=== PATIENT | male | born 1990 | race Two or more races ===

== ENCOUNTER 2020-10-27 15:45 | Emergency (ER) | payer OTHER, SELFPAY ==
[2020-10-27 15:51] VITALS: BP 141/88; PULSE 73; RESP 16; TEMP 36.7; O2SAT 99; BMI 26.2
[2020-10-27] MEDS: Lidocaine HCl 1 % MPF 5 ML VIAL SUBCUT (16:30)
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
== END 2020-10-27 19:56 | disposition home or self-care (01) ==
PROVIDERS: Emergency Provider Emergency Medicine Emergency Medical Services
DX: S91.311A Laceration without foreign body, right foot, initial encounter (principal); W22.8XXA Striking against or struck by other objects, initial encounter; Y93.89 Activity, other specified; Y92.038 Other place in apartment as the place of occurrence of the external cause; Y99.9 Unspecified external cause status
CPT/HCPCS: 12042; 99284

== ENCOUNTER 2021-05-30 10:12 | Emergency (ER) | payer OTHER, SELFPAY ==
[2021-05-30 10:18] VITALS: BP 103/57; PULSE 59; RESP 18; TEMP 36.8; O2SAT 97
--- NOTE | 2021-05-30 10:44 | ED.GENADULT ---
HPI - General Adult General Chief complaint: Upper Respiratory Symptoms Stated complaint: Cough Time Seen by Provider: 05/30/21 10:35 Source: patient Limitations: no limitations History of Present Illness HPI narrative: Patient presents with daughter states he has been coughing intermittently over the past few weeks. Patient is fully vaccinated for COVID-19. Patient admits to tobacco use and marijuana use. Patient states at times his cough is productive for yellow and white sputum. Patient denies any prescribed medications at this time. Patient denies nausea vomiting fever chills. No known COVID-19 exposure. Patient states he is trying to quit smoking at this time. No other complaints at this time. Related Data Previous Rx's Medication Instructions Recorded bacitracin 500 unit/gram topical 1 appl TOPICAL BID #30 g 10/27/20 ointment doxycycline hyclate 100 mg tablet 100 mg PO BID #14 tab 11/01/20 albuterol sulfate 90 mcg/actuation 2 inh INHALATION Q6H PRN #6.7 g 05/30/21 aerosol inhaler benzonatate 100 mg capsule 100 mg PO TID PRN #14 cap 05/30/21 Allergies Allergy/AdvReac Type Severity Reaction Status Date / Time No Known Allergies Allergy Verified 11/06/20 08:48 [No Known Allergies*] Review of Systems Constitutional: Constitutional: Denies chills, Denies fatigue, Denies fever(s) and Denies headache(s) ENT: Denies headache(s), Denies nasal congestion and Denies sore throat Cardiovascular: Cardiovascular: Denies chest pain and Denies dyspnea Respiratory: Respiratory: Reports chest congestion, Reports cough, Denies hemoptysis, Denies dyspnea and Reports wheezing Gastrointestinal: Gastrointestinal: Denies nausea and Denies vomiting Musculoskeletal: Musculoskeletal: Reports no additional musculoskeletal complaints Neurologic: Denies headache(s) Endocrine: Endocrine: Denies fatigue Allergic/Immunologic: Allergic/Immunologic: Reports wheezing PMFSH Past Medical History Medical History No known health problems Social History Social History Advance Directives: No Advance Directives Information Provided: No Physical Exam ED Vital Signs: Vital Signs - 24 hr 05/30/21 10:18 05/30/21 10:52 Temperature 98.2 F 98.2 F Pulse Rate 59 59 Respiratory Rate 18 18 Blood Pressure 103/57 L 103/57 L Pulse Oximetry 97 97 BMI result Body Mass Index 23.1 vital signs have been reviewed as normal and appeared to be correct. Blood pressure normal. Heart rate normal. Respiration rate normal. Temperature normal. Oxygen saturation normal. Appearance: Alert. Oriented X3. No acute distress. Head: Normal external exam. Normocephalic. Atraumatic. Eyes: PERRLA. EOMI. Conjunctiva and sclera normal. Eyelids normal. ENT: Pharynx normal. Uvula midline. Moist mucous membranes. No trismus noted. No drooling noted. No muffled voice noted. Neck: Soft full range of motion, no JVD CVS: Heart regular rate and rhythm no murmurs and rubs Respiratory: Breath sounds slightly coarse with forced expiratory wheeze only no accessory muscle use no respiratory compromise. Back: Full range of motion noted. Skin: Skin warm and dry. Normal skin color. Normal skin turgor. No rashes/lesions/lacerations noted. Extremities: No lower extremity edema. Extremities exhibit normal range of motion. Extremities nontender. Neuro: Oriented X 3. No motor deficit. No sensory deficit. Reflexes normal. Course Course Course Narrative: Influenza COVID-19 Chronic bronchitis Viral syndrome Reactive airway disease secondary to tobacco use. 11:04 COVID-19 swab influenza swabs pending. Symptoms likely secondary to reactive airway disease secondary to tobacco or marijuana use. Swab is negative for influenza a and B and COVID-19. Cough is likely secondary to reactive airway disease secondary to tobacco use. Medical Decision Making Lab Data Labs: Lab Results 05/30/21 05/30/21 Range/Units 10:41 10:41 COVID-19 (DIAMANTE) Negative (Negative) COVID-19 Clin Com See Note Influenza Type A (ROSALBA) Negative (Negative) Influenza Type B (ROSALBA) Negative (Negative) Influenza A & B Note See Note Discharge Plan Discharge Clinical Impression: Upper respiratory disease Patient Disposition: Home, Self-Care Instructions: How to Stop Smoking (ED) Additional Instructions: Cough is likely secondary to chronic smoking. You tested negative for influenza and COVID-19. Return if symptoms worsen follow-up with PCP Prescriptions: New benzonatate 100 mg capsule 100 mg PO TID PRN (Reason: cough) Qty: 14 0RF albuterol sulfate 90 mcg/actuation HFA aerosol inhaler 2 inh inhalation Q6H PRN (Reason: wheezing) Qty: 6.7 0RF No Action bacitracin 500 unit/gram ointment 1 appl topical BID Qty: 30 0RF doxycycline hyclate 100 mg tablet 100 mg PO BID Qty: 14 0RF Stand Alone Forms: Work/School Release
[2021-05-30 10:52] VITALS: BP 103/57; PULSE 59; RESP 18; TEMP 36.8; O2SAT 97; BMI 23.1
[2021-05-30 11:28] LABS: COVID-19 Test Negative (Negative)
[2021-05-30 11:39] LABS: IDNOW Serial# 08D9AD1C; Influenza A Negative (Negative); Influenza B2 Negative (Negative)
[2021-05-30] MEDS: Albuterol Sulfate 90 MCG 8 GM INHALER 2 PUFF INHALE (12:49)
== END 2021-05-30 13:00 | disposition home or self-care (01) ==
PROVIDERS: Physician Assistant; Emergency Provider Emergency Medicine
DX: J06.9 Acute upper respiratory infection, unspecified (principal); Z20.822 Contact with and (suspected) exposure to COVID-19; F17.200 Nicotine dependence, unspecified, uncomplicated; F12.90 Cannabis use, unspecified, uncomplicated
CPT/HCPCS: 87502; 87635; 94640; 99283; 99284

== ENCOUNTER 2022-07-01 09:33 | Outpatient (REF) | payer OTHER, SELFPAY ==
--- NOTE | ~2022-07-01 | XR_ITS ---
EXAMINATION: XR CHEST CLINICAL INFORMATION: Back pain. COMPARISON: None available. TECHNIQUE: 2 views of the chest were obtained. FINDINGS: No significant abnormality is noted involving the heart, lungs, mediastinum, bony thorax or soft tissues. XR/XR chest 2V IMPRESSION: No acute cardiopulmonary process.
== END 2022-07-01 09:34 | disposition home or self-care (01) ==
LOC: HO.HMGCX 09:33
PROVIDERS: Visit Provider Internal Medicine
DX: M54.9 Dorsalgia, unspecified (principal)
CPT/HCPCS: 71046

== ENCOUNTER 2022-12-31 09:52 | Emergency (ER) | payer OTHER, SELFPAY ==
--- NOTE | ~2022-12-31 | XR_ITS ---
EXAMINATION: XR CHEST CLINICAL INFORMATION: Worsening left upper chest pain COMPARISON: 07/01/2022 TECHNIQUE: Frontal view of the chest was obtained. FINDINGS: No significant abnormality is noted involving the heart, lungs, mediastinum, bony thorax or soft tissues. No pneumothorax. XR/XR chest 1V IMPRESSION: Unremarkable examination.
--- NOTE | 2022-12-31 09:54 | ECG_ITS ---
Test Reason : l sided chest pain Blood Pressure : / mmHG Vent. Rate : 064 BPM Atrial Rate : 064 BPM P-R Int : 152 ms QRS Dur : 098 ms QT Int : 392 ms P-R-T Axes : 061 030 035 degrees QTc Int : 404 ms Normal sinus rhythm Normal ECG No previous ECGs available Referred By: Generic ED Physician Electronically Signed By:FRANCOIS BAHENA MD
[2022-12-31 10:11] VITALS: BP 104/60; PULSE 69; RESP 16; TEMP 36.4; O2SAT 97; BMI 22.0
[2022-12-31 10:26] LABS: MANUAL DIFF FLAG NO
[2022-12-31 10:28] LABS: Basophils Percent Auto 0.5 % (0-2); Eosinophils Absolute Auto 0.1 X10*3/uL (0.0-0.4); Eosinophils Percent Auto 1.8 % (0-4); Hematocrit 47.5 % (42.0-52.0); Hemoglobin 15.5 g/dl (14.0-18.0); Imm Gran Abs Auto 0.02 X10*3/uL (0.00-0.03); Imm Gran Pct Auto 0.3 % (0.0-0.4); Lymphocytes Absolute Auto 1.7 X10*3/uL (1.2-4.9); Lymphocytes Percent Auto 27.6 % (20-40); Mean Corpuscular HGB Conc 32.6 g/dl (31.0-36.0); Mean Corpuscular Volume 91.9 fL (80.0-98.0); Mean Platelet Volume 11.8 fL (9.4-12.4); Monocytes Absolute Auto 0.4 X10*3/uL (0.1-1.2); Monocytes Percent Auto 6.4 % (2-11); Neutrophils Absolute Auto 3.9 x10*3/uL (2.0-8.3); Neutrophils Percent Auto 63.4 % (45-73); Platelet Count 160 X10*3/uL (160-400); Red Blood Count 5.17 X10*6/uL (4.60-5.80); Red Cell Distribution Width 11.7 % (11.0-16.0); White Blood Count 6.1 X10*3/uL (4.8-10.8)
[2022-12-31 10:41] LABS: Anion Gap 11 (12-20); Blood Urea Nitrogen 14 mg/dL (9-16); Calcium 9.9 mg/dL (8.4-10.2); Carbon Dioxide 27 mmol/L (22-29); Chloride 108 mmol/L (96-108); Creatinine Clr Calc Pharmacy 105.2; Estimated Glomerular Filt Rate > 60; Glucose Random 82 mg/dL (60-115); Potassium 4.2 mmol/L (3.3-5.1); Sodium 142 mmol/L (135-145)
[2022-12-31 10:51] LABS: Troponin-I High Sensitivity < 2.7 ng/L (<3.5-35.0)
--- NOTE | 2022-12-31 11:21 | ED_ITS ---
HPI - Chest Pain General Chief Complaint: Chest Pain Stated Complaint: pain near heart/ shoulder pain Time Seen by Provider: 12/31/22 11:22 Source: patient, old records reviewed and translator interpreter Mode of arrival: ambulatory Limitations: no limitations History of Present Illness HPI narrative: 32 yo male presents to the ER for evaluation of acute on chronic left sided chest pain. He states is has been going on intermittently for years but the last 1 week it has been worse. Last night when working out it was worse in the left chest when lifting. It is worse when he touches his chest wall. He states it does not radiate. He has no SOB, difficulty breathing, leg swelling, nausea, vomiting, abdominal pain, diaphoresis. No history of heart disease in family members under 50. He feels like he may have breast cancer in the left side because he lost 35 lbs over the last year. MD complaint: chest pain Onset (ago): week(s) Timing of current episode: episodic Prior episodes: Yes Onset: during rest Pain location: left chest Pain radiation: none Severity: moderate Quality: tightness Relieving factors: rest Exacerbating factors: palpation Treatment prior to arrival: none Risk Factors Coronary artery disease risk factors: none Thoracic aortic dissection risk factors: none Related Data Previous Rx's Medication Instructions Recorded bacitracin 500 unit/gram topical 1 appl topical BID #30 grams 10/27/20 ointment doxycycline hyclate 100 mg tablet 100 mg PO BID #14 tabs 11/01/20 albuterol sulfate 90 mcg/actuation 2 inh inhalation Q6H PRN wheezing 05/30/21 aerosol inhaler #6.7 grams benzonatate 100 mg capsule 100 mg PO TID PRN cough #14 caps 05/30/21 cyclobenzaprine 10 mg tablet 10 mg PO BEDTIME #14 tabs 07/01/22 meloxicam 15 mg tablet 15 mg PO DAILY #14 tabs 07/01/22 naproxen 500 mg tablet 500 mg PO BID PRN pain #20 tabs 12/31/22 Allergies Allergy/AdvReac Type Severity Reaction Status Date / Time No Known Allergies Allergy Verified 12/31/22 10:10 [No Known Allergies*] Review of Systems 2 Review of Systems: Yes all other systems are reviewed and are negative PMFSH Past Medical History Medical History No known health problems Social History Social History Advance Directives: No Advance Directives Information Provided: No Physical Exam 2 Vital Signs: Vital Signs: Last Vital Signs Temp 97.5 F 12/31/22 10:11 Pulse 69 12/31/22 10:11 Resp 16 12/31/22 10:11 BP 104/60 12/31/22 10:11 Pulse Ox 97 12/31/22 10:11 O2 Del Method Room Air 12/31/22 10:11 BMI result Body Mass Index 22.0 Appearance: Alert. Oriented X3. No acute distress. Head: normocephalic, atraumatic. Eyes: Pupils equal, round and reactive to light. ENT: Pharynx normal. No tonsillar swelling or exudate. Neck: Normal inspection. Neck supple. CVS: Normal heart rate and rhythm. Pulses normal. Left sided chest wall tenderness. no palpable mass Respiratory: No respiratory distress. Breath sounds normal. Abdomen: Soft and nontender. +BS x4 Skin: Skin warm and dry. Normal skin color. Normal skin turgor. No rashes. Extremities: No lower extremity edema. No joint swelling. No calf tenderness Neuro/psych: Oriented X 3. No motor deficit. No sensory deficit. CN II-XII intact. Normal speech and cognition. Medical Decision Making Medical Decision Making [facility] Narrative: 32 yo otherwise healthy male, current smoker who presents to the ER for evaluation of acute on chronic reproducible left sided chest pain. +tenderness on exam. VSS and exam otherwise unremarkable. Cardiac workup is unremarkable. CXR clear. trop <2.7 Given tenderness on exam, pain is likely muscular in nature. no palpable mass. patient reassured and encouraged to f/u with PCP if he is still concerned about a possible underlying malignancy. will start on NSAIDS for costochondritis. PCP referrals given. stable for d/c home Differential Diagnosis Differential Diagnoses: The differential diagnosis associated with the presentation includes MSK pain, costochondritis, PNA, bronchitis, less likely ACS, PE or breast cancer Lab Data [facility] Lab Attestation statement: I reviewed the patient's lab results. negative trop 12/31/22 10:21 12/31/22 10:21 Labs: Lab Results 12/31/22 Range/Units 10:21 WBC 6.1 (4.8-10.8) X10*3/uL RBC 5.17 (4.60-5.80) X10*6/uL Hgb 15.5 (14.0-18.0) g/dl Hct 47.5 (42.0-52.0) % MCV 91.9 (80.0-98.0) fL MCH 30.0 (27.0-33.0) pg MCHC 32.6 (31.0-36.0) g/dl RDW 11.7 (11.0-16.0) % Plt Count 160 (160-400) X10*3/uL MPV 11.8 (9.4-12.4) fL Immature Gran % (Auto) 0.3 (0.0-0.4) % Neut % (Auto) 63.4 (45-73) % Lymph % (Auto) 27.6 (20-40) % Hand % (Auto) 6.4 (2-11) % Eos % (Auto) 1.8 (0-4) % Baso % (Auto) 0.5 (0-2) % Lymph # (Auto) 1.7 (1.2-4.9) X10*3/uL Hand # (Auto) 0.4 (0.1-1.2) X10*3/uL Eos # (Auto) 0.1 (0.0-0.4) X10*3/uL Baso # (Auto) 0.0 (0.0-0.2) X10*3/uL Abs Immat Gran (auto) 0.02 (0.00-0.03) X10*3/uL Absolute Neuts (auto) 3.9 (2.0-8.3) x10*3/uL Absolute Nucleated RBC 0.000 (0.0-0.012) X10*3/uL Nucleated RBC % (auto) 0.0 (0.0-0.2) /100WBC Sodium 142 (135-145) mmol/L Potassium 4.2 (3.3-5.1) mmol/L Chloride 108 (96-108) mmol/L Carbon Dioxide 27 (22-29) mmol/L Anion Gap 11 L (12-20) BUN 14 (9-16) mg/dL Creatinine 0.82 (0.5-1.4) mg/dL Estim Creat Clear Calc 105.2 Estimated GFR > 60 Random Glucose 82 (60-115) mg/dL Calcium 9.9 (8.4-10.2) mg/dL Troponin I High Sens < 2.7 (<3.5-35.0) ng/L Independent Interpretation I performed an independent interpretation of an: EKG and Plain X-Ray Interpretation: cxr clear, no infiltrate, effusion or PTX ekg w/ normal sinus rhythm, HR 64 bpm, normal [place] interval and QTc, no ST segment elevations or depressions Radiology Impression Discussion of test interpretation with radiology: I have reviewed the radiologist's reading. Radiologist Impression: EXAMINATION: XR CHEST CLINICAL INFORMATION: Worsening left upper chest pain COMPARISON: 07/01/2022 TECHNIQUE: Frontal view of the chest was obtained. FINDINGS: No significant abnormality is noted involving the heart, lungs, mediastinum, bony thorax or soft tissues. No pneumothorax. XR/XR chest 1V IMPRESSION: Unremarkable examination. External Record Review External record reviewed: Outpatient record Prescription Management I considered prescription management with: Pain Medication Social Determinants Patient?s care significantly limited by Social Determinants of Health including: Other Social Determinant of Health (no PCP) Critical Care Time Critical Care Time Critical Care Time: No Discharge Plan Discharge Clinical Impression: Atypical chest pain, Costochondritis Patient Disposition: Home, Self-Care Instructions: Costochondritis (ED), Noncardiac Chest Pain (ED) Additional Instructions: your workup today was normal your pain is most likely muscular in nature take the prescribed anti-inflammatory pain medication as needed limit lifting to <20 lbs follow up with a primary care doctor for further evaluation and treatment If you develop new or worsening symptoms call 911 or come back to the ER for further evaluation. Prescriptions: New naproxen 500 mg tablet 500 mg PO BID PRN (Reason: pain) Qty: 20 0RF No Action bacitracin 500 unit/gram ointment 1 appl topical BID Qty: 30 0RF benzonatate 100 mg capsule 100 mg PO TID PRN (Reason: cough) Qty: 14 0RF albuterol sulfate 90 mcg/actuation HFA aerosol inhaler 2 inh inhalation Q6H PRN (Reason: wheezing) Qty: 6.7 0RF doxycycline hyclate 100 mg tablet 100 mg PO BID Qty: 14 0RF cyclobenzaprine 10 mg tablet 10 mg PO BEDTIME Qty: 14 0RF meloxicam 15 mg tablet 15 mg PO DAILY Qty: 14 0RF Referrals: [facility] [Provider Group] [facility]] [facility]]
[2022-12-31 12:15] VITALS: BP 98/54; PULSE 54; PULSE 55; RESP 16; O2SAT 98
== END 2022-12-31 12:18 | disposition home or self-care (01) ==
PROVIDERS: Emergency Provider Emergency Medicine Emergency Medical Services
DX: R07.89 Other chest pain (principal); M94.0 Chondrocostal junction syndrome [Tietze]; F12.90 Cannabis use, unspecified, uncomplicated
CPT/HCPCS: 36415; 71045; 80048; 84484; 85025; 93005; 99283; 99285

== ENCOUNTER 2023-01-26 20:29 | Emergency (ER) | payer OTHER, SELFPAY ==
--- NOTE | ~2023-01-26 | XR_ITS ---
EXAMINATION: XR CHEST CLINICAL INFORMATION: Cough COMPARISON: None available. TECHNIQUE: 2 views of the chest were obtained. FINDINGS: No significant abnormality is noted involving the heart, lungs, mediastinum, bony thorax or soft tissues. XR/XR chest 2V IMPRESSION: Unremarkable chest examination.
[2023-01-26 21:25] VITALS: BP 100/55; PULSE 55; RESP 16; TEMP 36.7; O2SAT 98; BMI 21.7
[2023-01-26 22:23] LABS: IDNOW Serial# 6674DD1D; Strep A Nucleic Acid Negative (Negative)
[2023-01-26 22:31] LABS: Influenza A PCR NEGATIVE (Negative); Influenza B PCR NEGATIVE (Negative); Resp Syncy Virus RNA Qual PCR NEGATIVE (Negative); SARS COV2 PCR INHOUSE NEGATIVE (Negative)
--- NOTE | 2023-01-26 22:46 | ED.URI ---
HPI - URI/Sore Throat General Chief Complaint: Upper Respiratory Symptoms Stated Complaint: flu like symptoms Time Seen by Provider: 01/26/23 22:34 Source: patient and family Mode of arrival: ambulatory Limitations: no limitations History of Present Illness HPI Narrative: 32-year-old male came in for evaluation of upper respiratory symptoms patient been having fever, coughing with white phlegm, sore throat, runny nose, sneezing 1 of the family member is having similar symptoms. No recent travel. Related Data Previous Rx's Medication Instructions Recorded bacitracin 500 unit/gram topical 1 appl topical BID #30 grams 10/27/20 ointment doxycycline hyclate 100 mg tablet 100 mg PO BID #14 tabs 11/01/20 albuterol sulfate 90 mcg/actuation 2 inh inhalation Q6H PRN wheezing 05/30/21 aerosol inhaler #6.7 grams benzonatate 100 mg capsule 100 mg PO TID PRN cough #14 caps 05/30/21 cyclobenzaprine 10 mg tablet 10 mg PO BEDTIME #14 tabs 07/01/22 meloxicam 15 mg tablet 15 mg PO DAILY #14 tabs 07/01/22 naproxen 500 mg tablet 500 mg PO BID PRN pain #20 tabs 12/31/22 Allergies Allergy/AdvReac Type Severity Reaction Status Date / Time No Known Allergies Allergy Verified 12/31/22 10:10 [No Known Allergies*] Review of Systems Review of Systems: All other systems are reviewed and are negative Constitutional: Reports as per HPI and Reports no additional constitutional complaints Eyes: Reports as per HPI and Reports no additional eye complaints Reports system reviewed and no additional complaints, except as documented Cardiovascular: Reports as per HPI and Reports no additional cardiovascular complaints Respiratory: Reports as per HPI and Reports no additional respiratory complaints Gastrointestinal: Reports as per HPI and Reports no additional gastrointestinal complaints Genitourinary: Reports no additional female genitourinary complaints Musculoskeletal: Reports no additional musculoskeletal complaints Skin/Breast: Reports system reviewed and no additional complaints, except as docu Psychiatric: Reports no additional psychiatric complaints Endocrine: Reports no additional endocrine complaints Hematologic/Lymphatic: Reports no additional hematologic/lymphatic complaints Allergic/Immunologic: Reports no additional allergic/immunologic complaints Reports system reviewed and no additional complaints, except as documented and Reports Abnormal speech present [facility] Past Medical History Medical History No known health problems Social History Alcohol intake: current Alcohol intake frequency: holidays/special occasions only Alcohol type: wine Smoked in Last 30 Days: Yes Use of substances other than those prescribed or required for medical reasons: No Substance Use Type: Marijuana Substance Use Frequency: Socially Last Used Substance: Days (ago) Any prior treatment program specific to substance use: No Advance Directives: No Advance Directives Information Provided: No Physical Exam Vital Signs: Vital Signs: Last Vital Signs Temp 98.0 F 01/26/23 21:25 Pulse 55 01/26/23 21:25 Resp 16 01/26/23 21:25 BP 100/55 L 01/26/23 21:25 Pulse Ox 98 01/26/23 21:25 O2 Del Method Room Air 01/26/23 21:25 BMI result Body Mass Index 21.7 Vital signs have been reviewed and appear to be correct. Blood pressure elevated. Heart rate normal. Respiratory rate normal. Temperature normal. Oxygen saturation normal. Appearance: Alert. Oriented X3. No acute distress. Head: Normal external exam. Normocephalic. Atraumatic. No Hill signs noted. No raccoon eyes noted Eyes: PERRLA. EOMI. Conjunctiva and sclera normal. Eyelids normal. ENT: TM's Normal. Pharynx normal. Uvula midline. Moist mucous membranes. No trismus noted. No drooling noted. No muffled voice noted. Neck: Normal inspection. Neck supple. FROM. No adenopathy. Thyroid Normal. No meningeal signs. No neck mass noted. CVS: Normal heart rate and rhythm. Heart sound normal. No murmurs noted. Pulses normal throughout. Respiratory: No respiratory distress. Painless inspiration. Breath sounds normal. No wheezes/rales/rhonchi noted. Chest nontender. No accessory muscle usage noted or decreased air movement noted. Abdomen: Soft and nontender. Bowel sounds normal in all 4 quadrants. No distention noted. No organomegaly noted. No visible injury noted. Back: No CVA tenderness. Full range of motion noted. Skin: Skin warm and dry. Normal skin color. Normal skin turgor. No rashes/lesions/lacerations noted. Extremities: No lower extremity edema. Extremities exhibit normal range of motion. Extremities nontender. Neuro: Oriented X 3. Cranial nerve exam: II-XII are grossly intact No motor deficit. No sensory deficit. Reflexes normal. Course Reevaluation(s) Reevaluation #1: 32-year-old male came in for evaluation of upper respiratory symptoms with coughing, patient is negative for respiratory viral panel, chest x-ray is unremarkable for infiltrate. Time: 23:41 Medical Decision Making Differential Diagnosis Differential Diagnoses: The differential diagnosis associated with the presentation includes (Influenza, RSV, COVID-19 infection, strep pharyngitis, pneumonia.) Admission/Observation Consideration of admission/observation: Escalation of care including admission/observation considered Lab Data MDM Lab Attestation statement: I reviewed the patient's lab results. Labs: Lab Results 01/26/23 01/26/23 Range/Units 21:40 22:58 Influenza Type A (PCR) NEGATIVE (Negative) Influenza Type B (PCR) NEGATIVE (Negative) RSV RNA Qual (PCR) NEGATIVE (Negative) SARS-CoV-2 RNA (RT-PCR) NEGATIVE (Negative) S. pyogenes GrpA ROSALBA Negative Cancelled (Negative) Independent Interpretation I performed an independent interpretation of an: Plain X-Ray (Chest: No acute intrathoracic pathology.) Radiology Impression Discussion of test interpretation with radiology: I have reviewed the radiologist's reading. Discharge Plan Discharge Clinical Impression: Viral infection, Bronchitis Patient Disposition: Home, Self-Care Instructions: Viral Syndrome (ED) Prescriptions: No Action bacitracin 500 unit/gram ointment 1 appl topical BID Qty: 30 0RF benzonatate 100 mg capsule 100 mg PO TID PRN (Reason: cough) Qty: 14 0RF albuterol sulfate 90 mcg/actuation HFA aerosol inhaler 2 inh inhalation Q6H PRN (Reason: wheezing) Qty: 6.7 0RF naproxen 500 mg tablet 500 mg PO BID PRN (Reason: pain) Qty: 20 0RF doxycycline hyclate 100 mg tablet 100 mg PO BID Qty: 14 0RF cyclobenzaprine 10 mg tablet 10 mg PO BEDTIME Qty: 14 0RF meloxicam 15 mg tablet 15 mg PO DAILY Qty: 14 0RF
== END 2023-01-26 23:53 | disposition home or self-care (01) ==
PROVIDERS: Emergency Provider Emergency Medicine
DX: B34.9 Viral infection, unspecified (principal); J40 Bronchitis, not specified as acute or chronic; Z20.822 Contact with and (suspected) exposure to COVID-19; Z20.828 Contact with and (suspected) exposure to other viral communicable diseases
CPT/HCPCS: 0241U; 71046; 87651; 99283

== ENCOUNTER 2024-10-05 07:28 | Emergency (ER) | payer OTHER, SELFPAY ==
--- NOTE | 2024-10-05 07:39 | PC.NURSE ---
not in [facility], apparently went out to smoke
[2024-10-05 08:18] VITALS: BP 100/61; PULSE 61; RESP 18; TEMP 36.6; O2SAT 99; BMI 23.2
--- OUTSIDE RECORDS SUMMARY | 2024-10-05 09:01 | XMS_ITS ---
Author Name [facility] Organization Unknown Care Team Organization Name Specialty Phone Email Start Date End Da te [facility] Chayo Valdes MD Primary Care 05/07/2022 10/19/2023 [facility] Termed, PROVIDER Primary Care 01/07/202209/30
--- OUTSIDE RECORDS SUMMARY | 2024-10-05 09:01 | XMS_ITS | Encounter Summary ---
Author Organization [facility] Address [address] [place] [address] Care Team Providers Care Closer On Name Role Phone Ricardo Tatum MD Primary Care Provider Reason for Visit * Reason Onset Date Comments Cyst 10/05/2024 Encounter Details Date Type Department Care Team ([facility] st Contact Info) Description 10/05/2024 Telephone Adult Medicine [facility] [address] [place] [address] Ricardo Tatum MD [address] [place] [address] Cyst Social History Tobacco Use Types Packs/Day Years Used Date Smoking Tobacco: Every Day Cigarettes Smokeless Tobacco: Never Alcohol Use Standard Drinks/Week Comments Yes 0 (1 standard drink = 0.6 oz pur e alcohol) Housing Instability Answer Date Recorde d Are you worried that in the next 2 months you may not have stable housing? No 04/20/2024 Food Access & Nutrition Answer Date Rec orded Do you have access to a vari ety of food including fruits and vegetables? Yes 04/20/2024 Health Literacy Answer Date Recorded How often do you need to hav e someone help you when you read instructions, pamphlets, or other written material from your doctor or pharmacy? Never 04/20/2024 Caregiver: How often do you need to have someone help you when you read instructions, pamphlets, or other written material from your doctor or pharmacy? Not on file 04/20/2024 Financial Risk Answer Date Recorded How hard is it for you to pa y for the very basics like food, housing, medical care, and air conditioning / heating? Not very hard 04/20/2024 Transportation Answer Date Recorded Has the lack of transportati on kept you from meetings, work, or from getting things needed for daily living? No Has the lack of transportati on kept you from medical appointments or from getting medications? No 04/20/2024 Social Isolation Answer Date Recorded How often do you feel lonely or isolated from th ose around you? Never 04/20/2024 Food Risk Answer Date Recorded Within the past 12 months we worried whether our food would run out before we got money to buy more. Never true 04/20/2024 Within the past 12 months th e food we bought just didn't last and we didn't have money to get more. Never true 04/20/2024 Dependent Care Answer Date Recorded Do you need help finding or paying for care for your loved ones. For example, children's tutor nursery or elderly care for an older adult? No 04/20/2024 Education Answer Date Recorded Do you think completing more education or training, like finishing a GED, going to college, or learning a trade, would be helpful for you? No 04/20/2024 Employment and Income Answer Date Recor ded During the last four weeks, have you been actively looking for work? No 04/20/2024 Living Situation Answer Date Recorded What is your living situation? 0 04/20/2024 Sex and Gender Information Value Date Recorded Sex Assigned at Not on file Legal Sex Male 1:51 PM EST Gender Identity Not on file Sexual Orientation Not on file documented as of this encounter Progress Notes * Shyanne Pearson - 10/05/2024 8:43 AM EDT Patient call requires triage: Symptoms patient is presenting: Patient is calling in with a cyst in his left jaw that hits his left ear. He states he's had it for 5 years and it was find but recently its becoming painful. He said the pain is not that bad but when opening his mouth if feels out of place. How long has patient had these symptoms?: 5 years For ALL patients calling to schedule any appointment (routine, sick visit, follow up, consult, etc.) in the outpatient setting please ask the following questions: Do you have fever of higher than 101, sore throat with difficulty swallowing or severe shortness ofbreath? no If YES to any of these above symptoms, send a message to triage and do not book. Red dot. If no, an audio or video visit should be booked. Have you had close contact with someone with Coronavirus in the last 14 days? no Have you traveled abroad? no Have you traveled recently to another state outside of [place], [place], [place], [place], [place], [place], [place]? no o If yes, did you quarantine for 14 days or have a negative covid test? no If yes to any of the above, patient is not to be scheduled in office until after 14 day quarantine or negative covid test. If pain or injury related was it due to an accident at work or from a motor vehicle accident? If yes, date of accident/Injury: No If yes, gather 3rd constitution party insurance information Third Green Party Information: not applicable PCP: Ricardo Tatum MD Payor: [employer] [facility] Connect / Plan: [employer] [facility] Connect HMO / Product Type: *No Product type* / documented in this encounter Plan of Treatment Not on file documented as of this encounter Visit Diagnoses Not on filedocumented in this encounter Additional Health Concerns Assessment Noted Time PHQ-9 Depression Total Score: 1 04/20/19 25 4:02 PM EST documented as of this encounter Care Teams Closer On Relationship Specialty Start Date End Date Ricardo Tatum MD [address] [place] [address] PCP - General 05/08/23 documented as of this encounter
--- NOTE | 2024-10-05 09:02 | ED_ITS ---
HPI - General Adult General Chief complaint: General Medical Stated complaint: Cyst in L mouth 4 years, hurts now Time Seen by Provider: 10/05/24 08:59 Source: patient Mode of arrival: ambulatory Limitations: no limitations History of Present Illness ED Provider: Areli Hyatt PA-C HPI narrative: Patient is a 34 year old assigned male at with a history of a retention cyst in his left jaw years ago presenting to the emergency department today with left jaw pain and clicking. Patient states that over the last few days he has had left sided jaw pain and clicking with opening. Patient denies any dizziness, lightheadedness, abdominal pain, nausea, vomiting, fever, chills, blurry vision, double vision, loss of vision, chest pain, difficulty breathing, shortness of breath, back pain, night sweats, pain with urination, increased urinary frequency, increased urinary urgency, blood in his urine or stool, syncope or a near syncopal episode, recent trauma or falls, bowel incontinence, bladder incontinence, or any other complaints at this time. Relieving factors: none Exacerbating factors: other (wide mouth opening) Associated symptoms: denies other symptoms Treatments prior to arrival: none Related Data Previous Rx's ?Medication ?Instructions ?Recorded bacitracin 500 unit/gram topical 1 appl topical BID #3 0 grams 10/27/20 ointment doxycycline hyclate 100 mg tablet 100 mg PO BID #14 ta bs 11/01/20 albuterol sulfate 90 mcg/actuation 2 inh inhalation Q6 H PRN wheezing 05/30/21 aerosol inhaler #6.7 grams benzonatate 100 mg capsule 100 mg PO TID PRN cough #14 caps 05/30/21 cyclobenzaprine 10 mg tablet 10 mg PO BEDTIME #14 tabs 07/01/22 meloxicam 15 mg tablet 15 mg PO DAILY #14 tabs 05/0 04/24 naproxen 500 mg tablet 500 mg PO BID PRN pain #20 t abs 12/31/22 cyclobenzaprine 5 mg tablet 5 mg PO TID PRN muscle spa sm 7 10/05/24 days #21 tabs naproxen 500 mg tablet 500 mg PO BID 7 days #14 tab s 10/05/24 Allergies Allergy/AdvReac Type Severity Reaction Status Date / Time No Known Allergies (No Known Allergy Verified 10/05/24 08:20 Allergies*) Review of Systems Constitutional: Constitutional: Reports no additional constitutional complaints, Denies chills, Denies fever(s) and Denies night sweats Eyes: Eyes: Reports no additional eye complaints, Denies blurry vision, Denies change in vision, Denies diplopia, Denies eye discharge, Denies loss of vision and Denies eye pain ENT: Denies dizziness Comments: left sided jaw pain and clicking Cardiovascular: Cardiovascular: Reports no additional cardiovascular complaints, Denies chest pain, Denies lightheadedness, Denies Loss of Consciousness and Denies dyspnea Respiratory: Respiratory: Reports no additional respiratory complaints and Denies dyspnea Gastrointestinal: Gastrointestinal: Reports no additional gastrointestinal complaints, Denies abdominal pain, Denies melena, Denies hematochezia, Denies change in bowel habits and Denies change in stool character Genitourinary: Genitourinary: Reports no additional male genitourinary complaints, Denies hematuria, Denies oliguria, Denies difficulty urinating, Denies dysuria, Denies urinary frequency, Denies urinary hesitancy, Denies urinary incontinence and Denies urinary urgency Musculoskeletal: Musculoskeletal: Reports no additional musculoskeletal complaints, Denies numbness and Denies tingling Neurologic: Denies dizziness, Denies loss of vision, Denies numbness and Denies tingling Psychiatric: Psychiatric: Reports no additional psychiatric complaints Endocrine: Endocrine: Reports no additional endocrine complaints Hematologic/Lymphatic: Hematologic/Lymphatic: Reports no additional hematologic/lymphatic complaints Allergic/Immunologic: Allergic/Immunologic: Reports no additional allergic/immunologic complaints PMFSH Past Medical History Attestation statement: The following information was validated with the patient. Source: old records reviewed and nursing notes reviewed Medical History No known health problems Social History Social History Alcohol intake: current Alcohol intake frequency: holidays/special occasions only Alcohol type: wine Substance Use Type: Marijuana Advance Directives: No Advance Directives Information Provided: Yes Do you have a plan to hurt others: No Plan Physical Exam ED Vital Signs: Vital Signs - 24 hr 10/05/24 08:18 Temperature 98 F Pulse Rate 61 Respiratory Rate 18 Blood Pressure 100/61 Pulse Oximetry 99 BMI result Body Mass Index 23.2 Const General: cooperative, no acute distress, alert and awake Nutritional Appearance: well nourished Orientation/consciousness: patient oriented x3 HENMT Head: Yes normal to inspection and Yes atraumatic Ears: hearing grossly normal bilaterally and external ears normal General nose exam: Normal external nose present, no nasal discharge noted and no epistaxis Face and sinus: Yes normal facial exam, No abrasion and No laceration Mouth: Normal oral and palatal mucosa present, no drooling and no muffled voice Eyes General: appearance normal, both eyes and all related structures Periorbital: periorbital findings normal Eyelids: Yes eyelids normal Conjunctivae: conjunctivae normal Pupils: Equal, round and reactive pupils present EOM: EOMs intact bilaterally Neck Neck: Yes normal visual inspection, Yes full ROM and Yes no lymphadenopathy Resp Effort & Inspection: normal respiratory effort and able to speak in complete sentences Neuro General: patient oriented x3, moves all extremities and CN's II-XI intact bilaterally Cranial nerves: Yes Equal, round and reactive pupils present Cognition (Neuro): normal cognition Extrem General: Yes normal to inspection, Yes full ROM and Yes capillary refill normal Psych Appearance: grossly normal Mental Status: mental status grossly normal Affect: normal affect Attitude: cooperative Thought process: Normal thought process present Thought content: Normal thought content present Insight: Good insight present (Psych) Medications Administered Discontinued Medications Generic Name Dose Route Start Last Admin Trade Name Hue PRN Reason Stop Dose Admin Cyclobenzaprine HCl 5 mg 10/05/24 09:43 10/05/24 09:54 Cyclobenzaprine Hcl 5 Mg Tablet PO 10/05/24 09:44 5 mg ONCE ONE Administration Ketorolac Tromethamine 15 mg 10/05/24 09:43 10/05/24 09:55 Ketorolac Tromethamine 15 Mg/Ml Vial IM 10/05/24 09:44 15 mg ONCE ONE Administration Medical Decision Making Medical Decision Making MDM Narrative: Patient is a 34 year old assigned male at with a history of a retention cyst in his left jaw years ago presenting to the emergency department today with left jaw pain and clicking. Patient's physical exam was unremarkable - no cyst appreciated on examination. Patient's clinical presentation is most consistent with left sided TMJ dysfunction / clicking / pain. I explained my physical exam findings to the patient. I answered all questions asked by the patient. I stressed the importance of the patient taking his medication as directed (either prescribed or as the over the counter packaging recommends). I stressed the importance of the patient following up with his primary care provider and a dentist. I stressed the importance of the patient returning to the emergency department immediately if his symptoms were to worsen or if he were to develop any dizziness, shortness of breath, difficulty breathing, chest pain, blurry vision, loss of vision, nausea, vomiting, abdominal pain, fever, chills, back pain, or any other complaints. Patient verbalized agreement and understanding with this treatment plan and discharge. Differential Diagnosis Differential Diagnoses: The differential diagnosis associated with the presentation includes Left sided TMJ dysfunction Left sided TMJ pain Left sided jaw pain Admission/Observation Consideration of admission/observation: Escalation of care including admission/observation considered Patient would have been admitted to the hospital had his clinical presentation warranted hospital admission. Prescription Management I considered prescription management with: Pain Medication (patient prescribed pain medication) Discharge Plan Discharge Clinical Impression: TMJ click Patient Disposition: Home, Self-Care Additional Instructions: Follow up with a dentist about your left TMJ dysfunction. Roxana un seguimiento con un dentista acerca de ca disfunci?n de la [place]. Follow up with your primary care provider. Return to the emergency department immediately if your symptoms worsen or if you develop any dizziness, shortness of breath, difficulty breathing, chest pain, blurry vision, loss of vision, nausea, vomiting, abdominal pain, fever, chills, back pain, or any other complaints. Roxana?seguimiento?con ca m?dico de atenci?n primaria. Acuda inmediatamente al servicio de urgencias si jam s?ntomas empeoran o si presenta falta de aliento, dificultad para respirar, dolor tor?cico, mareos, aturdimiento, dolor de espalda, dolor abdominal, fiebre, escalofr?os o cualquier otro s?ntoma. [facility]: ?[address] [facility]: [phone] ?[address] [facility] [address], [place]: [phone] [facility]: phone# for ALL [phone] ?[address] [facility] ?[address] [facility] ?[address] [facility] ?[address] [facility] phone# for ALL [phone] ?[address] ?[address] [facility] [address] [facility]: ?[address] [facility] DILCIA: [phone] [facility]: ?[address] [facility]: [phone] [facility]: ?[address] [facility]: [phone] [facility]: ?[address] [facility]: [phone] [facility]: ?[address] [facility]: [phone] [facility]: ?[address] [facility]: [phone] [facility] ?[address] [facility]: [phone] [facility]: ?[address]: [phone] [facility]: ?[address] [facility] [phone] Please see the information below about our Patient Portal. If you are not yet enrolled in the [facility] Patient Portal, you will receive an enrollment email invitation following your visit to any [facility] setting. You may also self-enroll in the Patient Portal by visiting our website: [email or web address] The following information is required to access the Patient Portal: - Your [facility] Medical Record Number - Your personal home email address (must match what is in your electronic medical record, Registration staff can assist with this) - Name - Date of Capabilities of the Patient Portal: - Message some providers - View upcoming appointments - Access your health summary, medical history, and visit history - View current conditions and allergies - View procedure and lab results - View your medications, including guidelines, side effects, and precautions - Complete pre-appointment questionnaires requested by your provider - Ready summary reports of your office visits and procedures To access the Patient Portal Mobile Tatiana, follow these directions: - Search [employer] in the Tatiana Store or [employer] Store - Download the Tatiana - Search for [facility] - Enter your login/password Portal del paciente Si usted no esta inscrito en el portal de pacientes de [facility] y [facility], recibira shira invitacion de inscripcion despues de ca visita al [facility] o al [facility] via correo electronico. Tambien puede inscribirse voluntariamente en el portal de pacientes visitando nuestra pagina web: [email or web address] La siguiente informacion sera requerida para acceder al portal: - Ca murali de historia medica de [facility] - Ca direccion de correo electronico personal - Nombre - Fecha de nacimiento Capacidades: Las siguientes capacidades estan disponibles en el portal de pacientes: - Enviar mensajes a algunos doctores - Verificar proximas citas - Acceso a ca historial de ramu, registro medico e historial de visitas - Mayda las condiciones actuales y alergias mayda procedimientos y resultados del laboratorio - Mayda jam medicamentos, incluyendo las pautas - Efectos secundarios y precauciones - Completar o llenar formularios / cuestionarios de - Citas solicitadas por ca doctor - Leer los resumenes de reportes medicos de jam visitas y procedimientos [place] acceder a la aplicacion movil: - [facility] en la [employer] Store o Google Play Store - Descargue la aplicacion - [facility] - Ingrese ca nombre de usuario / Contrasena Prescriptions: New naproxen 500 mg tablet 500 mg PO BID 7 Days Qty: 14 0RF cyclobenzaprine 5 mg tablet 5 mg PO TID PRN (Reason: muscle spasm) 7 Days Qty: 21 0RF No Action bacitracin 500 unit/gram ointment 1 appl topical BID Qty: 30 0RF benzonatate 100 mg capsule 100 mg PO TID PRN (Reason: cough) Qty: 14 0RF albuterol sulfate 90 mcg/actuation HFA aerosol inhaler 2 inh inhalation Q6H PRN (Reason: wheezing) Qty: 6.7 0RF naproxen 500 mg tablet 500 mg PO BID PRN (Reason: pain) Qty: 20 0RF doxycycline hyclate 100 mg tablet 100 mg PO BID Qty: 14 0RF cyclobenzaprine 10 mg tablet 10 mg PO BEDTIME Qty: 14 0RF meloxicam 15 mg tablet 15 mg PO DAILY Qty: 14 0RF Referrals: Ricardo Tatum MD [Primary Care Provider, Internal Medicine] Stand Alone Forms: Work/School Release Print Language: Telugu
[2024-10-05 09:58] VITALS: BP 108/70; PULSE 69; RESP 18; TEMP 36.6; O2SAT 99
== END 2024-10-05 09:59 | disposition home or self-care (01) ==
PROVIDERS: Emergency Provider Emergency Medicine; PCP Internal Medicine
DX: M26.69 Other specified disorders of temporomandibular joint (principal); R68.84 Jaw pain
CPT/HCPCS: 96372; 99283; 99284; J1885